=== PATIENT | female | born 1965 | race Caucasian/White ===

== ENCOUNTER 2016-08-22 06:09 | Emergency (ER) | payer OTHER ==
[2016-08-22] MEDS ORDERED: Sodium Chloride 0.9% 1000 ML 1,000 ML IV STA (06:30)
--- NOTE | 2016-08-22 06:30 | ERPHSYRPT ---
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 Pt sts "hot" with this. Denies nausea. Sts felt short of breath and nervous - took 2 alprazolam 30 min ago due to feeling like she was anxious. Has hx of similar symptoms. No dx of a-fib or irregular heart beat in past. Triage Nursing Assessment: Pt alert, oriented, answers all questions appropriately. Skin p/w/d, resps non-labored. Pt ambulatory to tx room, steady gait noted. Lungs CTA bilat. ABD SNT x 4 quadrants, + bowel sounds x 4 quadrants noted. Physician History: ABOUT 1 HOUR AGO PT AWOKE WITH HER HEART BEATING FAST, SHORTNESS OF AIR AND DIAPHORESIS; DENIES CHEST PAIN, VOMITING, ABDOMINAL PAIN. Allergies/Adverse Reactions: aspirin Allergy (Verified 08/22/16 06:28) gabapentin Allergy (Verified 08/22/16 06:28) meperidine HCl [From Demerol] Allergy (Verified 08/22/16 06:28) Sulfa (Sulfonamide Antibiotics) [Sulfa(Sulfonamide Antibiotics)] Allergy ( Verified 08/22/16 06:28) levofloxacin [From Levaquin] Adverse Reaction (Verified 08/22/16 06:28) Home Medications: Alprazolam 0.25 mg [xanAX 0.25 MG] 0.25 mg PO BIDPRN PRN 03/28/14 [History ] Cholecalciferol (Vitamin D3) [Vitamin D] 1 tab PO DAILY 03/28/14 [History] Levothyroxine Sodium 112 Mcg [Synthroid 112 Mcg] 112 mcg PO DAILY 03/28/14 [History] Loratadine 10 mg [Claritin 10 mg] 10 mg PO DAILY 03/28/14 [History] Losartan Potassium [Cozaar] 25 mg PO DAILY 03/28/14 [History] Hx Tetanus, Diphtheria Vaccination/Date Given: (unknown) Hx Influenza Vaccination/Date Given: No Hx Pneumococcal Vaccination/Date Given: No Immunizations Up to Date: No - Review of Systems Respiratory: Dyspnea Cardiac: Other (FAST HEART BEAT), No Chest Pain Abdominal/Gastrointestinal: No Abdominal Pain, No Vomiting Endocrine: Excessive Sweating All Other Systems: Reviewed and Negative - Past Medical History Pertinent Past Medical History: Yes Neurological History: No Pertinent History ENT History: No Pertinent History Cardiac History: Congestive Heart Failure, Hypertension, Other Respiratory History: Other Endocrine Medical History: Hypothyroidism Musculoskeletal History: Fibromyalgia, Fractures, Osteoarthritis GI Medical History: Hemorrhoids History: No Pertinent History Psycho-Social History: Panic Disorder Female Reproductive Disorders: Other Other Medical History: Hx of pulmonary hypertension per patient stating has to wear oxygen when laying down, mitral valve prolapse, GERD, severe anxiety, hyperlipidemia, obesity, cervical cancer, and hx fracture pelvis. Previous exacerbation >5 years ago. Treated with P.T. - not sure what thinks exercise, US and massage. Wears CPAP at night. - Past Surgical History Past Surgical History: Yes Gastrointestinal: Cholecystectomy Female Surgical History: Hysterectomy Other Surgical History: ercp, - Social History Smoking Status: Never smoker Exposure to second hand smoke: No Drug Use: none Patient Lives Alone: No - Female History Hx Last Menstrual Period: hyst Hx Now: No - Nursing Vital Signs Nursing Vital Signs: Initial Vital Signs Temperature 98.0 F Temperature Source Oral Pulse Rate [] 110 Pulse Rate 112 Respiratory Rate 16 Blood Pressure [] 128/52 Pain Intensity 5 - Physical Exam General Appearance: alert, anxiety Eye Exam: PERRL/EOMI Ears, Nose, Throat Exam: TMs normal, pharynx normal, moist mucous membranes Neck Exam: normal inspection Respiratory Exam: lungs clear Cardiovascular Exam: normal heart sounds Gastrointestinal/Abdomen Exam: soft, normal bowel sounds Back Exam: normal range of motion Extremity Exam: No swelling Neurologic Exam: alert, cooperative, No normal mood/affect (ANXIOUS) Skin Exam: warm, dry SpO2 Interpretation: normal SpO2: 98 Oxygen Delivery: Room Air - Course Nursing assessment & vital signs reviewed: Yes EKG Interpreted by Me: RATE (97), Sinus Rhythm, NORMAL AXIS, NORMAL INTERVALS - Radiology Exams Chest X-ray Interpretation: Interpreted by me (GRANULOMA RIGHT MID LUNG) Ordered Tests: Active Orders 24 hr Category Date Time Status Videogame Designer STAT Care 08/22/16 06:30 Active EKG-ER Only STAT Care 08/22/16 06:30 Active IV Insertion STAT Care 08/22/16 06:30 Active Oxygen-ED Only NASAL CANNULA 2 lpm Care 08/22/16 06:30 Active Pulse Oximetry (ED) STAT Care 08/22/16 06:30 Active CHEST 1 VIEW (PORTABLE) Stat Exams 08/22/16 06:31 Taken AMYLASE Stat Lab 08/22/16 06:42 Completed CBC W DIFF Stat Lab 08/22/16 06:42 Completed CMP Stat Lab 08/22/16 06:42 Completed LIPASE Stat Lab 08/22/16 06:42 Completed MAGNESIUM Stat Lab 08/22/16 06:42 Completed T4 Stat Lab 08/22/16 06:42 Completed TROPONIN Q3H Lab 08/22/16 06:42 Completed TROPONIN Q3H Lab 08/22/16 09:45 Ordered TROPONIN Q3H Lab 08/22/16 12:45 Ordered TROPONIN Q3H Lab 08/22/16 15:45 Ordered TROPONIN Q3H Lab 08/22/16 18:45 Ordered TSH, 3RD Generation Stat Lab 08/22/16 06:42 Completed UA Stat Lab 08/22/16 06:45 Completed Urine Triage Profile Stat Lab 08/22/16 06:31 Completed Medication Summary Discontinued Medications Generic Name Dose Route Start Last Admin Trade Name Jesúsq PRN Reason Stop Dose Admin Diazepam 10 mg 08/22/16 06:32 08/22/16 07:05 Valium 10 Mg/2 Ml Syringe IV 08/22/16 06:33 10 mg STAT ONE Administration Diazepam Confirm 08/22/16 06:55 Valium 10 Mg/2 Ml Syringe Administered 08/22/16 06:56 Dose 10 mg .ROUTE .STK-MED ONE Sodium Chloride 1,000 mls @ 999 mls/hr 08/22/16 06:30 08/22/16 07:04 Sodium Chloride 0.9% 1000 Ml IV 08/22/16 07:30 999 mls/hr .Q1H1M STA Administration Sodium Chloride Confirm 08/22/16 06:55 Sodium Chloride 0.9% 1000 Ml Administered 08/22/16 06:56 Dose 1,000 mls @ ud .ROUTE .STK-MED ONE Lab/Rad Data: Laboratory Result Diagrams 08/22/16 06:42 08/22/16 06:42 Laboratory Results 08/22/16 08/22/16 08/22/16 Range/Units 06:45 06:42 06:42 WBC (4.0-10.5) K/mm3 RBC (4.1-5.4) M/mm3 Hgb (12.0-16.0) gm/dl Hct (35-47) % MCV (78-100) fl MCH (26-32) pg MCHC (32-36) g/dl RDW (11.5-14.0) % Plt Count (150-450) K/mm3 MPV (6-9.5) fl Gran % (36.0-66.0) % Lymphocytes % (24.0-44.0) % Monocytes % (0.0-12.0) % Eosinophils % (0.00-5.0) % Basophils % (0.0-0.4) % Basophils # (0-0.4) Sodium 147 H (136-145) mEq/L Potassium 3.6 (3.5-5.1) mEq/L Chloride 108 H (98-107) mEq/L Carbon Dioxide 27.9 (21-32) mEq/L Anion Gap 14.8 (5-15) MEQ/L BUN 18 (9-20) mg/dL Creatinine 1.19 (0.55-1.30) mg/dl Estimated GFR 51 ML/MIN Glucose 101 (70-110) MG/DL Calcium 8.6 (8.5-10.1) mg/dL Magnesium 2.1 (1.8-2.4) mg/dL Total Bilirubin 0.3 (0.2-1.0) mg/dL AST 21 (15-37) U/L ALT 20 (12-78) U/L Alkaline Phosphatase 104 (46-116) U/L Troponin I < 0.017 (0.000-0.056) ng/ml Serum Total Protein 7.1 (6.4-8.2) gm/dL Albumin 3.4 (3.4-5.0) g/dL Amylase 83 (25-115) U/L Lipase 225 (73-393) U/L Thyroxine (T4) 9.0 (4.7-13.3) UG/DL TSH 3rd Generation 2.725 (0.358-3.740) mIU/L Ur Collection Type VOID Urine Color COLORLESS (YELLOW) Urine Appearance CLEAR (CLEAR) Urine pH 6.5 (5-6) Ur Specific [place] <=1.005 (1.005-1.025) Urine Protein NEGATIVE (Negative) Urine Glucose (UA) NEGATIVE (NEGATIVE) mg/dL Urine Ketones NEGATIVE (NEGATIVE) Urine Nitrite NEGATIVE (NEGATIVE) Urine Bilirubin NEGATIVE (NEGATIVE) Urine Urobilinogen 0.2 (0-1) mg/dL Urine WBC (Auto) NEGATIVE (NEGATIVE) Urine RBC (Auto) NEGATIVE (0-5) [place]/ul Urine Opiates Level (NEGATIVE) Ur Methadone (NEGATIVE) Urine Barbiturates (NEGATIVE) Ur Phencyclidine (PCP) (NEGATIVE) Urine Amphetamine (NEGATIVE) U Benzodiazepine Level (NEGATIVE) Urine Cocaine (NEGATIVE) Urine Marijuana (THC) (NEGATIVE) Specimen Received 08/22/16 650 08/22/16 08/22/16 Range/Units 06:42 06:31 WBC 6.7 (4.0-10.5) K/mm3 RBC 4.25 (4.1-5.4) M/mm3 Hgb 12.0 (12.0-16.0) gm/dl Hct 37.6 (35-47) % MCV 88.5 (78-100) fl MCH 28.2 (26-32) pg MCHC 31.9 L (32-36) g/dl RDW 13.3 (11.5-14.0) % Plt Count 206 (150-450) K/mm3 MPV 11.3 H (6-9.5) fl Gran % 49.8 (36.0-66.0) % Lymphocytes % 38.9 (24.0-44.0) % Monocytes % 7.9 (0.0-12.0) % Eosinophils % 3.0 (0.00-5.0) % Basophils % 0.4 (0.0-0.4) % Basophils # 0.03 (0-0.4) Sodium (136-145) mEq/L Potassium (3.5-5.1) mEq/L Chloride (98-107) mEq/L Carbon Dioxide (21-32) mEq/L Anion Gap (5-15) MEQ/L BUN (9-20) mg/dL Creatinine (0.55-1.30) mg/dl Estimated GFR ML/MIN Glucose (70-110) MG/DL Calcium (8.5-10.1) mg/dL Magnesium (1.8-2.4) mg/dL Total Bilirubin (0.2-1.0) mg/dL AST (15-37) U/L ALT (12-78) U/L Alkaline Phosphatase (46-116) U/L Troponin I (0.000-0.056) ng/ml Serum Total Protein (6.4-8.2) gm/dL Albumin (3.4-5.0) g/dL Amylase (25-115) U/L Lipase (73-393) U/L Thyroxine (T4) (4.7-13.3) UG/DL TSH 3rd Generation (0.358-3.740) mIU/L Ur Collection Type Urine Color (YELLOW) Urine Appearance (CLEAR) Urine pH (5-6) Ur Specific [place] (1.005-1.025) Urine Protein (Negative) Urine Glucose (UA) (NEGATIVE) mg/dL Urine Ketones (NEGATIVE) Urine Nitrite (NEGATIVE) Urine Bilirubin (NEGATIVE) Urine Urobilinogen (0-1) mg/dL Urine WBC (Auto) (NEGATIVE) Urine RBC (Auto) (0-5) Damion/ul Urine Opiates Level NEG. (NEGATIVE) Ur Methadone NEG. (NEGATIVE) Urine Barbiturates NEG. (NEGATIVE) Ur Phencyclidine (PCP) NEG. (NEGATIVE) Urine Amphetamine NEG. (NEGATIVE) U Benzodiazepine Level NEG. (NEGATIVE) Urine Cocaine NEG. (NEGATIVE) Urine Marijuana (THC) NEG. (NEGATIVE) Specimen Received - Departure Time of Disposition: 08:11 Departure Disposition: Home Clinical Impression: ANXIETY, FAST HEART RATE Condition: Stable Critical Care Time: No Instructions: Anxiety -- Adult Additional Instructions: FOLLOW UP WITH PRIVATE DOCTOR TOMORROW.
[2016-08-22] MEDS ORDERED: VALIUM 10 MG/2 ML SYRINGE IV ONE (06:32)
[2016-08-22 06:45] LABS: BASOPHIL % 0.4 % (0.0-0.4); Granulocytes % 49.8 % (36.0-66.0); Lymphocytes % 38.9 % (24.0-44.0); Mean Cell Volume 88.5 fl (78-100); Mean Corpuscular Hemoglobin 28.2 pg (26-32); Mean Platelet Volume 11.3 fl (6-9.5); Monocytes % 7.9 % (0.0-12.0); Platelet Count 206 K/mm3 (150-450); Red Blood Count 4.25 M/mm3 (4.1-5.4); Red Cell Distribution Width 13.3 % (11.5-14.0); White Blood Count 6.7 K/mm3 (4.0-10.5)
[2016-08-22] MEDS ORDERED: Sodium Chloride 0.9% 1000 ML 1,000 ML ONE (06:55)
[2016-08-22] MEDS ORDERED: VALIUM 10 MG/2 ML SYRINGE ONE (06:55)
[2016-08-22 07:01] LABS: COMPLETE URINE MICROSCOPIC? NO; Collection Type VOID; Ph 6.5 (5-6)
[2016-08-22 07:20] LABS: ALBUMIN 3.4 g/dL (3.4-5.0); ANION GAP 14.8 MEQ/L (5-15); BILIRUBIN,TOTAL 0.3 mg/dL (0.2-1.0); Carbon Dioxide 27.9 mEq/L (21-32); MAGNESIUM 2.1 mg/dL (1.8-2.4); Potassium 3.6 mEq/L (3.5-5.1); Total Protein 7.1 gm/dL (6.4-8.2)
[2016-08-22 08:19] VITALS: BP 126/62; PULSE 100; O2SAT 99
--- NOTE | 2016-08-22 08:58 | XRAY ---
Indication: Short of breath. Comparison: May 19, 2016. Portable chest demonstrates stable right lung calcified granuloma. Remaining heart, lungs, and bony thorax normal.
== END 2016-08-22 08:18 | disposition home or self-care (01) ==
LOC: ED 06:09
DX: F41.9 Anxiety disorder, unspecified (principal); R00.0 Tachycardia, unspecified; R06.02 Shortness of breath; R61 Generalized hyperhidrosis; Z79.899 Other long term (current) drug therapy
CPT/HCPCS: 36000; 36415; 71010; 80053; 80307; 81002; 82150; 83690; 83735; 84436; 84443; 84484; 85025; 93005; 93041; 96360; 96374; 99284; J3360

== ENCOUNTER 2018-11-30 12:30 | Emergency (ER) | payer OTHER ==
--- NOTE | 2018-11-30 12:33 | ERPHSYRPT ---
- History of Present Illness Time Seen by Provider: 11/30/18 12:33 Source: patient Exam Limitations: no limitations Physician History: 53 y/o obese white female slipped and fell on concrete directly onto left ant knee. no head injury and no back injury. Occurred: hours ago (1) Reason for Fall: slipped, tripped Injuries/Pain Location: lower extremity (left knee) Loss of Consciousness: no loss of consciousness Quality: throbbing Severity of Pain-Max: moderate Severity of Pain-Current: moderate Modifying Factors: Improves With: movement Associated Symptoms (Fall): extremity injury (left ant knee) Allergies/Adverse Reactions: aspirin Allergy (Verified 11/30/18 12:48) gabapentin Allergy (Verified 11/30/18 12:48) meperidine HCl [From Demerol] Allergy (Verified 11/30/18 12:48) Sulfa (Sulfonamide Antibiotics) [Sulfa(Sulfonamide Antibiotics)] Allergy ( Verified 11/30/18 12:48) levofloxacin [From Levaquin] Adverse Reaction (Verified 11/30/18 12:48) Home Medications: Alprazolam 0.25 mg [xanAX 0.25 MG] 0.25 mg PO BIDPRN PRN 03/28/14 [History ] Levothyroxine Sodium 112 Mcg [Synthroid 112 Mcg] 100 mcg PO DAILY 03/28/14 [History] Hx Tetanus, Diphtheria Vaccination/Date Given: (unknown) Hx Influenza Vaccination/Date Given: No Hx Pneumococcal Vaccination/Date Given: No - Review of Systems Constitutional: No Symptoms Eyes: No Symptoms Ears, Nose, & Throat: No Symptoms Respiratory: No Symptoms Cardiac: No Symptoms Abdominal/Gastrointestinal: No Symptoms Genitourinary Symptoms: No Symptoms Musculoskeletal: Fall, Injury (left ant knee) Skin: No Symptoms Neurological: No Symptoms Psychological: No Symptoms Endocrine: No Symptoms Hematologic/Lymphatic: No Symptoms Immunological/Allergic: No Symptoms All Other Systems: Reviewed and Negative - Past Medical History Pertinent Past Medical History: Yes Neurological History: No Pertinent History ENT History: No Pertinent History Cardiac History: Congestive Heart Failure, Hypertension, Other Respiratory History: Other Endocrine Medical History: Hypothyroidism Musculoskeletal History: Fibromyalgia, Fractures, Osteoarthritis GI Medical History: Hemorrhoids History: No Pertinent History Psycho-Social History: Panic Disorder Female Reproductive Disorders: Other Other Medical History: Hx of pulmonary hypertension per patient stating has to wear oxygen when laying down, mitral valve prolapse, GERD, severe anxiety, hyperlipidemia, obesity, cervical cancer, and hx fracture pelvis. Previous exacerbation >5 years ago. Treated with P.T. - not sure what thinks exercise, US and massage. Wears CPAP at night. - Past Surgical History Past Surgical History: Yes Gastrointestinal: Cholecystectomy Female Surgical History: Hysterectomy Other Surgical History: ercp, - Social History Smoking Status: Never smoker Exposure to second hand smoke: No Drug Use: none Patient Lives Alone: No - Nursing Vital Signs Nursing Vital Signs: Initial Vital Signs Temperature 99.1 F 11/30/18 12:39 Pulse Rate 76 11/30/18 12:39 Respiratory Rate 16 11/30/18 12:39 Blood Pressure 155/97 11/30/18 12:39 O2 Sat by Pulse Oximetry 96 11/30/18 12:39 Pain Scale Pain Intensity 7 - Yas Coma Score Best Eye Response (Yas): (4) open spontaneously Best Verbal Response (Yas): (5) oriented Best Motor Response ([place]): (6) obeys commands Yas Total: 15 - Physical Exam General Appearance: no apparent distress, alert, anxiety Head Injury: no evidence of injury, No active bleeding, No [place]'s Sign, No lacerations Eye Exam: PERRL/EOMI, eyes nml inspection ENT Exam: airway nml, nml ext.inspection Neck Exam: supple, trachea midline, full range of motion, normal alignment, normal inspection Respiratory/Chest Exam: No chest tenderness Gastrointestinal Exam: No tenderness Rectal Exam: not done Back Exam: normal inspection, normal range of motion, No CVA tenderness, No vertebral tenderness Extremity Exam: normal range of motion, pelvis stable, evidence of injury (left ant knee), swelling, tenderness Neurologic Exam: alert, oriented x 3, cooperative, financial accountant II-XII nml as tested, normal mood/affect Skin Exam: ecchymosis (left ant knee) SpO2 Interpretation: normal O2 Delivery: Room Air Ordered Tests: Active Orders 24 hr Category Date Time Status KNEE (3 VIEWS) Stat Exams 11/30/18 12:44 Completed - Progress Progress: unchanged Progress Note: 11/30/18 13:42 xray left knee- no acute fx or dislocation Counseled pt/family regarding: diagnosis, need for follow-up, rad results - Departure Departure Disposition: Home Clinical Impression: Knee contusion Condition: Stable Critical Care Time: No Referrals: EDWIGE VIERA [Primary Care Provider] - Additional Instructions: ice pack 3 times daily for 3 days. weight bearing as tolerated. add ibuprofen or naproxen for pain if not allergic. follow up with primary doctor for persistent symptoms. Prescriptions: Hydrocodone/APAP 5/325 [[place] 5/325 mg] 1 each PO Q8H PRN PRN #10 tablet MDD 3 PRN Reason: Pain
[2018-11-30 12:57] VITALS: BP 155/97; PULSE 76; O2SAT 96
--- NOTE | 2018-11-30 13:35 | XRAY ---
Indication: Pain following fall. Comparison: None 3 views of the left knee demonstrates minimal medial joint space narrowing, tiny lateral tibia plateau bony island, and anterior soft tissue swelling. No other bony, articular, or soft tissue abnormalities.
== END 2018-11-30 14:04 | disposition home or self-care (01) ==
LOC: ED 12:30
DX: S80.02XA Contusion of left knee, initial encounter (principal); M25.462 Effusion, left knee; W01.198A Fall on same level from slipping, tripping and stumbling with subsequent striking against other object, initial encounter
CPT/HCPCS: 73562; 99283